=== PATIENT | female | born 1995 | race Caucasian/White ===

== ENCOUNTER 2018-01-31 05:27 | Emergency (ER) | payer MEDICARE ==
[~2018-01-31] VITALS: Ht 172.7 cm; Wt 88.5 kg
[2018-01-31] MEDS ORDERED: FLOMAX0.4 MG PO (08:13)
[2018-01-31] MEDS ORDERED: ONDANSETRON ODT8 MG PO (08:13)
[2018-01-31] MEDS ORDERED: PERCOCET 5-3251 EACH PO (08:13)
== END 2018-01-31 08:35 | disposition home or self-care (01) ==
LOC: ED 05:27
DX: N20.1 Calculus of ureter (principal)
CPT/HCPCS: 74176; 81001; 84703; 87088; 96374; 96375; 99284; J1885; J2270; J2405; J7030